=== PATIENT | male | born 1945 | race Caucasian/White ===

== ENCOUNTER 2020-08-04 13:45 | Emergency (ER) | payer MEDICARE, SELFPAY ==
[2020-08-04] VITALS (8 sets, daily range): BP systolic 153–170; BP diastolic 86–99; PULSE 77–110; RESP 13–19; TEMP 36.6; O2SAT 95–98; BMI 24.4
--- NOTE | 2020-08-04 13:49 | HMH.EDHA ---
ED Disposition Clinical Impression: TIA (transient ischemic attack) Disposition: Xfer Short-Term Hosp Condition on Discharge: Good Referrals: Stephen Nloen [Primary Care Provider] - Forms: Transfer Record - ED - Critical Care Critical Care Time: No Attestation: On , the high probability of a clinically significant, sudden or life threatening deterioration of the following system(s) required my full and direct attention, intervention and personal management. The time I documented below is in addition to time spent performing reported procedures but includes the following listed in this critical care notation. Medical Decision Making - Medical Records Medical records reviewed: Yes: I reviewed the patient's medical records. - [place] Inquiry Pt receiving controlled substance: No Vital Signs: 08/04/20 14:00 08/04/20 14:47 08/04/20 15:00 Temperature 98 F Temperature Source Oral Pulse Rate [Radial] 94 H 86 87 Respiratory Rate 16 14 13 Blood Pressure [Right Arm] 170/89 H 153/91 H 162/89 H Blood Pressure Mean [Right Arm] 116 111 113 Blood Pressure Source [Right Arm] Automatic Cuff Automatic Cuff Blood Pressure Position [Right Arm] Sitting Sitting Sitting 02 Sat by Pulse Oximetry 98 97 96 Oxygen Delivery Method Room Air Room Air Room Air 08/04/20 15:30 08/04/20 16:00 08/04/20 17:00 Temperature Temperature Source Pulse Rate [Radial] 89 110 H 94 H Respiratory Rate 16 15 19 Blood Pressure [Right Arm] 170/86 H 159/96 H 159/99 H Blood Pressure Mean [Right Arm] 114 117 119 Blood Pressure Source [Right Arm] Automatic Cuff Automatic Cuff Automatic Cuff Blood Pressure Position [Right Arm] Sitting Sitting Sitting 02 Sat by Pulse Oximetry 97 96 95 Oxygen Delivery Method Room Air Room Air Room Air - Lab Data Lab results reviewed: Yes: I reviewed the patient's lab results. Lab Results 08/04/20 14:05: WBC 9.4, RBC 5.21, Hgb 13.5 L, Hct 42.3, MCV 81.3, MCH 25.9 L, MCHC 31.9, RDW 15.3, Plt Count 212, MPV 8.7, Neut % (Auto) 83.5 H, Lymph % (Auto) 11.1, [place] % (Auto) 3.6, Eos % (Auto) 1.5, Baso % (Auto) 0.4, Neut # (Auto) 7.8, Lymph # (Auto) 1.0, [place] # (Auto) 0.3, Eos # (Auto) 0.1, Baso # (Auto) 0.0 08/04/20 14:05: Sodium 138, Potassium 3.8, Chloride 102, Carbon Dioxide 31 H, Anion Gap 8.8, BUN 19, Creatinine 1.10, Estimated Creat Clear 71, Estimated GFR 66, Est GFR ( Amer) 79, Glucose 99, Calcium 11.2 H, Total Bilirubin 1.1, AST 24, ALT 13, Alkaline Phosphatase 87, Total Protein 7.6, Albumin 4.4, Globulin 3.2, Albumin/Globulin Ratio 1.4 08/04/20 14:05: Troponin I < 0.01 08/04/20 15:00: Urine Color Yellow, Urine Appearance Clear, Urine pH 6.5, Ur Specific [place] 1.020, Urine Protein Negative, Urine Glucose (UA) Negative, Urine Ketones 1+, Urine Blood 1+, Urine Nitrate Negative, Urine Bilirubin Negative, Urine Urobilinogen 0.2, Ur Leukocyte Esterase 1+ A, Urine RBC 5-10, Urine WBC 5-10, Ur Squamous Epith Cells Occasional, Urine Bacteria Trace Result diagrams: 08/04/20 14:05 08/04/20 14:05 Orders (Tests/Meds): ED MEDICATIONS Discontinued Medications Generic Name Dose Route Start Last Admin Trade Name Freq PRN Reason Stop Dose Admin Aspirin 81 mg 08/04/20 17:07 Aspirin Ec 81mg Tablet PO 08/04/20 17:08 ONCE ONE Iopamidol 100 ml 08/04/20 16:57 08/04/20 16:59 Iopamidol-370 (76%);100ml Bottle IV 08/04/20 16:58 100 ml ONCE ONE Administration Sodium Chloride 40 ml 08/04/20 16:57 08/04/20 16:58 0.9 % Sodium Chloride 50 Ml Vial IV 08/04/20 16:58 40 ml ONCE ONE Administration Sodium Chloride 10 ml 08/04/20 16:57 08/04/20 16:59 Sodium Chloride 0.9% 10ml Syr (Rad Only) IV 08/04/20 16:58 10 ml ONCE ONE Administration ORDERS Category Date Time Status CT angio head Stat Cat Scan 08/04/20 16:[address] angio neck Stat Cat Scan 08/04/20 16:24 Taken Full Resp Panel w/COVID ([facility]) Routine Lab 08/04/20 16:41 Received Troponin I Q3H Lab 08/04/20 18:0
--- NOTE | 2020-08-04 13:58 | CT_ITS ---
PROCEDURE: CT HEAD/BRAIN WO CON CLINICAL INDICATION: weakness Confusion, headache, recent fall COMPARISON: No exams were available for comparison TECHNIQUE: Axial images obtained. All CT scans at the facility use one or more dose reduction, viz: automated exposure control, ma/kV adjustment per patient size (including targeted exams where dose is matched to indication, i.e. head), or iterative reconstruction technique. FINDINGS: No midline shift, mass effect, intracranial hemorrhage, hydrocephalus, or extra-axial fluid collection is evident. There is generalized atrophy with hypoattenuation of the periventricular white matter consistent with microangiopathic changes.. There is a cavum septum pellucidum present as a normal variant. The calvarium has an unremarkable appearance. No mastoid effusion. No sinus air-fluid level. IMPRESSION: No acute intracranial finding Dictated by: George Schumacher MD 08/04/2020 14:50 George Schumacher MD in [place] 08/04/2020 14:50
--- NOTE | 2020-08-04 14:01 | ECG_ITS ---
APPROVED REPORT Exam: Resting ECG HR:87 bpm ECG Measurements Heart Rate 87 AXES ID 182 P 50 QRSd 142 QRS 28 QT 384 T 56 QTc 462 Conclusion Sinus rhythm with premature atrial complexes with aberrant conduction Right bundle branch block Abnormal ECG Electronically signed by : Richard Mary, 08/04/2020 17:46:30
[2020-08-04 14:22] LABS: Basophils % 0.4 % (0.1-2.0); Eosinophils # 0.1 K/mm3 (0.0-0.4); Eosinophils % 1.5 % (0.1-12.0); Hematocrit 42.3 % (42.0-52.0); Hemoglobin 13.5 g/dL (14.1-18.0); Lymphocytes % 11.1 % (10-50); Mean Corpuscular HGB Conc 31.9 g/dL (31.8-35.4); Mean Corpuscular Hemoglobin 25.9 pg (27.0-31.2); Mean Corpuscular Volume 81.3 fl (80-94); Mean Platelet Volume 8.7 fl (7.4-10.4); Monocytes # 0.3 K/mm3 (0.1-1.0); Monocytes % 3.6 % (1.7-9.3); Neutrophils # 7.8 K/mm3 (1.8-7.8); Neutrophils % 83.5 % (37.0-80.0); Platelet Count 212 K/mm3 (142-424); Red Blood Count 5.21 M/mm3 (4.60-6.20); Red Cell Distribution Width 15.3 % (11.5-17.5); White Blood Count 9.4 K/mm3 (4.8-10.8)
[2020-08-04 14:30] LABS: Chloride 102 mmol/L (98-107); Sodium 138 mmol/L (136-145)
[2020-08-04 14:31] LABS: Potassium 3.8 mmoL/L (3.5-5.1)
--- NOTE | 2020-08-04 14:31 | PC.NURSE ---
Pt gone to CT
[2020-08-04 14:33] LABS: Alanine Aminotransferase 13 U/L (12-78); Albumin Level 4.4 g/dl (3.5-5.0); Albumin/Globulin Ratio 1.4 (1.1-1.8); Alkaline Phosphatase 87 U/L (38-126); Anion Gap 8.8 mEq/L (5-15); Aspartate Amino Transferase 24 U/L (17-59); Bilirubin,Total 1.1 mg/dl (0.2-1.3); Blood Urea Nitrogen 19 mg/dl (9-20); Carbon Dioxide 31 mmol/L (22.0-30.0); Creatinine Clearance Estimated 71 mL/min (50-200); Estimated Glomerular Filt Rate 66 ml/min (>60); GFR (African American) 79 ML/MIN (>60); Globulin 3.2 g/dL (1.3-3.2); Total Protein,Serum 7.6 g/dl (6.3-8.2)
[2020-08-04 14:34] LABS: Calcium 11.2 mg/dl (8.4-10.2); Glucose 99 mg/dl (74-100)
[2020-08-04 15:13] LABS: Microscopic, Urine URINE MICROSCOPIC (MICROSCOPIC)
[2020-08-04 15:14] LABS: Troponin I < 0.01 ng/ml (0.00-0.034)
[2020-08-04 15:14] LABS: Appearance,Urine CLEAR (Clear); Bilirubin,Urine Negative (Negative); Blood, Urine 1+ (Negative); Color,Urine YELLOW (Yellow); Glucose,Urine (UA) Negative (Negative); Ketones,Urine 1+ (Negative); Leukocyte Esterase,Urine 1+ (Negative); Nitrate,Urine Negative (Negative); PH,Urine 6.5 (5.0-8.5); Protein,Urine Negative (Negative); Urobilinogen,Urine 0.2 EU/dl (0.2)
[2020-08-04 15:36] LABS: Bacteria,Urine Trace /lpf; Squamous Epithelial Cell,Urine Occasional #/hpf (0-5)
--- NOTE | 2020-08-04 16:12 | PC.NURSE ---
Calling [facility] MD[facility] at this time
--- NOTE | 2020-08-04 16:20 | PC.NURSE ---
Dr Kohler speaking with Dr Abdalla at [facility] at this time.
--- NOTE | 2020-08-04 16:23 | PC.NURSE ---
[facility] on highest level of diversion per Dr Kohler and Dr Abdalla Conversation.
--- NOTE | 2020-08-04 16:24 | CT_ITS ---
Procedure: CT ANGIO NECK CLINICAL HISTORY: TIA Weakness, confusion, headache COMPARISON: CT CT ANGIO HEAD from 08/04/2020 TECHNIQUE: IV Contrast: 100ml Isovue 370 Axial images obtained with sagittal and coronal reformats. All CT scans at the facility use one or more dose reduction, viz: automated exposure control, ma/kV adjustment per patient size (including targeted exams where dose is matched to indication, i.e. head), or iterative reconstruction technique. FINDINGS: CT angio neck: Right carotid: The common carotid has an unremarkable appearance. Minimal mixed plaque is present at the proximal right ICA with approximately 20-30 percent stenosis. There is tortuosity of the right ICA with medial deviation in the retropharyngeal area. Left carotid: Unremarkable common carotid. Minimal atheromatous plaque at the proximal left ICA with less than 20 percent stenosis. Distal left ICA has an unremarkable appearance. Vertebrals: The right vertebral is dominant. No stenosis or dissection of the vertebrals. 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 CTA head: There is mild calcific plaque involving the cavernous portion of both ICAs without significant stenosis. No aneurysm, AVM, or dissection evident. The right vertebral is dominant with a hypoplastic left vertebral. Basilar artery has an unremarkable appearance. Mild stenosis involves the P2 segment of the left posterior cerebral artery. There are centrilobular emphysematous changes with scarring in the upper lobes right more extensive than left. 1.2 cm node is present in the right suprahilar region. Scattered small nodes are present in the neck. No enhancing lesions of the brain. Few foci of gas are noted posterior to the cricoid cartilage nonspecific and could be due to trapped air within mucous or could be related to infection. Please correlate with clinical parameters. There is a mixed lytic and sclerotic appearance of the T3 vertebral body with a Schmorl's node along its inferior endplate with mild wedging of T3. IMPRESSION: 1. No significant stenotic lesions. 2. No aneurysm AVM or dissection. 3. Mild stenosis P2 segment on the left 4. Other nonacute findings as described above. 5. Minimal wedging of T3 vertebral body with lytic and sclerotic changes. MRI may provide further evaluation if clinically warranted as there are no old images available for comparison. Dictated by: George Schumacher MD 08/05/2020 09:00 George Schumacher MD in [facility] 08/05/2020 09:00
--- NOTE | 2020-08-04 16:25 | PC.NURSE ---
Calling [facility] at this time.
--- NOTE | 2020-08-04 16:29 | PC.NURSE ---
Patient being placed on wait list with [facility] at this time. They advised there is no beds available and likely wont be in the next 24 hours. Advised them of pt TIA and that he DOES NOT need ICU per Jose F.
--- NOTE | 2020-08-04 16:30 | PC.NURSE ---
Dr Kohler speaking with [employer]domin[employer] manager Neurology at [facility] at this time.
--- NOTE | 2020-08-04 16:43 | PC.NURSE ---
Calling [facility] at this time.
[2020-08-04 17:01] LABS: Adenovirus,PCR Not Detected (NotDetected); Bordetella Pertussis Not Detected (NotDetected); Chlamydophila Pneumoniae, PCR Not Detected (NotDetected); Coronavirus 19, PCR Not Detected (NotDetected); Coronavirus 229E Not Detected (NotDetected); Coronavirus NL63 Not Detected (NotDetected); Coronavirus OC43 Not Detected (NotDetected); Coronovirus HKU1,PCR Not Detected (NotDetected); Human Metapneumovirus Not Detected (NotDetected); Influenza A, PCR Not Detected (NotDetected); Influenza AH1, 2009 Not Detected (NotDetected); Influenza AH1, PCR Not Detected (NotDetected); Influenza AH3,PCR Not Detected (NotDetected); Influenza B, PCR Not Detected (NotDetected); Mycoplasma Pneumoniae, PCR Not Detected (NotDetected); Parainfluenza 1, PCR Not Detected (NotDetected); Parainfluenza 2, PCR Not Detected (NotDetected); Parainfluenza 3, PCR Not Detected (NotDetected); Parainfluenza 4, PCR Not Detected (NotDetected); Respiratory Syncytial Virus Not Detected (NotDetected); Rhinovirus/Enterovirus Not Detected (NotDetected)
--- NOTE | 2020-08-04 17:12 | PC.NURSE ---
Pt stated that when symptoms started that he took an 81 mg baby aspirin.
--- NOTE | 2020-08-04 17:19 | PC.NURSE ---
Patient has been accepted to [facility] under Dr Mullins.
--- NOTE | 2020-08-04 17:32 | PC.NURSE ---
report called to [facility]
--- NOTE | 2020-08-04 17:36 | PC.NURSE ---
[facility] advised COVID results can be faxed to them. Erica notified of need for transport.
--- NOTE | 2020-08-04 18:06 | PC.NURSE ---
report given to [facility]. pt transferred to [facility].
[2020-08-05 05:27] LABS: POC Glucose,Bedside 106 (70-110)
== END 2020-08-04 18:17 | disposition short-term general hospital (02) ==
PROVIDERS: Emergency Provider Family Medicine; PCP Physician Assistant
DX: G45.8 Other transient cerebral ischemic attacks and related syndromes (principal); R82.998 Other abnormal findings in urine
CPT/HCPCS: 70450; 70496; 70498; 80053; 81001; 82962; 84484; 85025; 87086; 87581; 87633; 87798; 93005; 99284; Q9967